=== PATIENT | female | born 1985 | race Caucasian/White ===

== ENCOUNTER 2019-07-10 13:20 | Outpatient (CLI) | payer OTHER, SELFPAY ==
--- NOTE | ~2019-07-10 | MMUS_ITS ---
EXAMINATION: MM diagnostic kanika LT w chrystal, US breast LT complete HISTORY: 2 left breast lumps at 12:00 TECHNIQUE: ML, MLO and cc 3-D tomosynthesis images of the left breast were performed and synthetic 2- D images were generated. CAD analysis was submitted and interpreted. High resolution complete left br east ultrasound was performed. COMPARISON: 12/19/2018 bilateral diagnostic digital mammogram and limited 9:00 left breast ultrasound BREAST PARENCHYMAL COMPOSITION: There are scattered areas of fibroglandular density. FINDINGS: MAMMOGRAPHIC FINDINGS: No suspicious reproducible left mammographic mass is evident. ULTRASOUND: At 12:00 near the nipple there is an oval parallel circumscribed 2.7 x 6.1 x 6.6 mm sonolucency witho ut internal vascularity or suspicious shadowing consistent with a cyst. IMPRESSION: 1. No mammographic evidence of malignancy 2. Routine annual mammographic screening is recommended. BI-RADS Category 2: Benign finding(s). Reviewed, dictated and finalized at location A. IMPRESSION: 1. No mammographic evidence of malignancy 2. Routine annual mammographic screening is recommended. BI-RADS Category 2: Benign finding(s).
== END 2019-07-10 13:21 | disposition home or self-care (01) ==
LOC: ANHIMG 13:23
PROVIDERS: PCP Nurse Practitioner Family; Visit Provider Nurse Practitioner Family
DX: N63.20 Unspecified lump in the left breast, unspecified quadrant (principal)
CPT/HCPCS: 76641; 77061; 77065; G0279

== ENCOUNTER 2019-10-22 16:49 | Outpatient (CLI) | payer OTHER, SELFPAY ==
[2019-10-22 18:28] LABS: Beta HCG Quantitative < 2.39 mIU/ML
== END 2019-10-22 16:50 | disposition home or self-care (01) ==
PROVIDERS: PCP Nurse Practitioner Family; Visit Provider Nurse Practitioner
DX: Z32.01 Encounter for pregnancy test, result positive (principal)
CPT/HCPCS: 36415; 84702

== ENCOUNTER 2020-02-11 12:56 | Outpatient (CLI) | payer OTHER, SELFPAY | END 2020-02-11 12:57 | disposition home or self-care (01) | LOC: ANHAUDASC 12:57 | PROVIDERS: PCP Nurse Practitioner Family | DX: H90.42 Sensorineural hearing loss, unilateral, left ear, with unrestricted hearing on the contralateral side (principal) | CPT/HCPCS: 92557; 92567 ==

== ENCOUNTER 2020-02-14 15:06 | Outpatient (CLI) | payer OTHER, SELFPAY ==
--- NOTE | ~2020-02-14 | MR_ITS ---
EXAMINATION: MR IAC wo/w con DATE: 02/14/2020 16:57 INDICATION: Sudden left-sided hearing loss. TECHNIQUE: Magnetic resonance imaging (MRI) of the brain, brainstem, and internal auditory canals was performed without and with 20 mL MultiHance intravenous contrast. Sequences included sagittal and ax ial T1-weighted FSE, axial diffusion-weighted FS EPI, axial T2*-weighted GRE, axial T2-weighted FLAIR Propeller, axial T2-weighted Propeller, small fjxkg-qu-inea coronal FIESTA, small jqudn-tr-tbez mayi nal T1-weighted FSE, and small cmqbo-bg-zrtx axial T1-weighted SPGR. Postcontrast sequences included axial T1-weighted FSE, small cddyi-rg-zsam coronal T1-weighted FSE, and small brzth-mp-psuk axial T1- weighted SPGR. Apparent diffusion coefficient (ADC) maps were created. COMPARISON: Brain MRI 03/08/2018 FINDINGS: There is no intracranial hemorrhage, acute infarction, or abnormal intracranial mass lesion . The ventricles are normal in size. There is mild mucosal thickening in the paranasal sinuses. The o rbits are normal. The internal auditory canals are normal. There is a small left mastoid effusion. IMPRESSION: 1. Normal brain. Reviewed, dictated and finalized at location A. IMPRESSION: 1. Normal brain.
[2020-02-14 16:19] LABS: Estimated Glomerular Filt Rate > 60
== END 2020-02-14 15:07 | disposition home or self-care (01) ==
PROVIDERS: PCP Nurse Practitioner Family
DX: H91.22 Sudden idiopathic hearing loss, left ear (principal)
CPT/HCPCS: 70553; A9577

== ENCOUNTER 2020-03-24 10:00 | Outpatient (RCR) | payer OTHER, SELFPAY | END 2020-03-24 23:59 | disposition home or self-care (01) | LOC: ANHAUDIO 10:00 | PROVIDERS: PCP Nurse Practitioner Family; Visit Provider Nurse Practitioner Family | DX: Z46.1 Encounter for fitting and adjustment of hearing aid (principal) | CPT/HCPCS: 99199; V5241; V5257; V5264 ==

== ENCOUNTER 2020-07-28 09:45 | Outpatient (CLI) | payer OTHER, SELFPAY ==
--- NOTE | ~2020-07-28 | MMUS_ITS ---
EXAMINATION: MM diagnostic kanika BI w chrystal, US breast BI complete HISTORY: Bilateral nipple discharge. Breast pain. TECHNIQUE: Additional 3-D tomosynthesis images of the breasts were performed and synthetic 2-D images were generated. CAD analysis was submitted and interpreted. High resolution bilateral complete breas t ultrasound was performed. COMPARISON: Comparison to multiple prior studies sequentially, with oldest reviewed study dated 11/2012. BREAST PARENCHYMAL COMPOSITION: Breast composed of scattered areas of fibroglandular density FINDINGS: MAMMOGRAPHIC FINDINGS: There are no suspicious masses, calcifications or architectural distortion in either breast to sugges t malignancy. ULTRASOUND: Bilateral complete breast ultrasound including all 4 quadrants: There are multiple cysts of both celeste sts, largest in the right breast measuring 8 mm in largest in the left breast measuring approximately 1 cm. No sonographic evidence for malignancy. IMPRESSION: 1. No evidence for malignancy in either breast. 2. Routine yearly screening mammogram and regular clinical breast examination are recommended. BI-RADS Category 2: Benign finding(s). Reviewed, dictated and finalized at location A. IMPRESSION: 1. No evidence for malignancy in either breast. 2. Routine yearly screening mammogram and regular clinical breast examination a re recommended. BI-RADS Category 2: Benign finding(s).
[2020-07-28 10:58] LABS: Free T4 Free Thyroxine 0.78 ng/mL (0.78-2.19)
== END 2020-07-28 09:46 | disposition home or self-care (01) ==
PROVIDERS: PCP Nurse Practitioner Family; Visit Provider Obstetrics & Gynecology Gynecology
DX: O92.6 Galactorrhea (principal)
CPT/HCPCS: 36415; 76641; 77062; 77066; 84146; 84439; 84443; G0279

== ENCOUNTER 2020-09-16 12:43 | Outpatient (CLI) | payer OTHER, SELFPAY ==
[2020-09-16 14:35] LABS: Free T4 Free Thyroxine 0.86 ng/mL (0.78-2.19)
== END 2020-09-16 12:44 | disposition home or self-care (01) ==
PROVIDERS: PCP Nurse Practitioner Family; Visit Provider Obstetrics & Gynecology Gynecology
DX: R79.9 Abnormal finding of blood chemistry, unspecified (principal)
CPT/HCPCS: 36415; 84439; 84443

== ENCOUNTER 2023-03-23 09:21 | Outpatient (CLI) | payer OTHER, SELFPAY ==
[2023-03-26 06:36] LABS: Prolactin 8.9 ng/mL (***)
== END 2023-03-23 09:22 | disposition home or self-care (01) ==
LOC: ANHLAB 09:24
PROVIDERS: PCP Nurse Practitioner Family; Visit Provider Advanced Practice Midwife
DX: N64.52 Nipple discharge (principal)
CPT/HCPCS: 36415; 84146

== ENCOUNTER 2023-06-22 09:28 | Outpatient (CLI) | payer OTHER, SELFPAY ==
[2023-06-22 09:46] LABS: Hematocrit 50.2 % (37.0-47.0); Hemoglobin 16.1 g/dL (12.0-15.0); Mean Corpuscular HGB Conc 32.1 g/dl (32-36); Mean Corpuscular Hemoglobin 29.5 pg (26-34); Mean Corpuscular Volume 92.1 fl (80-100); Mean Platelet Volume 9.9 fl (7.4-10.4); Platelet Count Result 287 k/mm3 (150-375); Red Blood Count 5.45 M/mm3 (4.2-5.4); Red Cell Distribution Width 13.3 % (11.5-14.5); White Blood Count 6.7 K/mm3 (4.5-10.0)
[2023-06-22 09:58] LABS: Alanine Aminotransferase 16 U/L (6-35); Albumin Level 4.3 g/dL (3.5-5.1); Alkaline Phosphatase 104 U/L (38-126); Anion Gap 7 mmol/L (8-16); Aspartate Amino Transferase 17 U/L (14-36); Bilirubin,Total 0.4 mg/dL (0.2-1.3); Blood Urea Nitrogen 10 mg/dL (7-17); Calcium 9.2 mg/dL (8.4-10.2); Carbon Dioxide 24 mmol/L (22-30); Chloride 106 mmol/L (98-107); Cholesterol 170 mg/dL (0-200); Estimated Glomerular Filt Rate > 60; Glucose 94 mg/dL (65-110); HDL Direct 60 mg/dL; Potassium 4.1 mmol/L (3.4-5.0); Sodium 137 mmol/L (137-145); Triglycerides 43 mg/dL (<150)
[2023-06-22 10:08] LABS: LDL Cholesterol Direct 101 mg/dL
[2023-06-22 10:49] LABS: Hemoglobin A1C 5.5 % (<5.7)
[2023-06-26 11:56] LABS: Vitamin D 1,25 (OH)2 Total 63 pg/mL (18-72); Vitamin D2 1,25 (OH)2 15 pg/mL; Vitamin D3 1,25 (OH)2 48 pg/mL
== END 2023-06-22 09:29 | disposition home or self-care (01) ==
LOC: ANHLAB 09:29
PROVIDERS: PCP Nurse Practitioner Family; Visit Provider Nurse Practitioner Family
DX: R53.83 Other fatigue (principal); Z13.0 Encounter for screening for diseases of the blood and blood-forming organs and certain disorders involving the immune mechanism; Z13.1 Encounter for screening for diabetes mellitus; E55.9 Vitamin D deficiency, unspecified; E03.9 Hypothyroidism, unspecified; Z13.220 Encounter for screening for lipoid disorders
CPT/HCPCS: 36415; 80053; 80061; 82607; 82652; 83036; 84443; 85027

== ENCOUNTER 2023-06-29 13:06 | Outpatient (CLI) | payer OTHER, SELFPAY ==
--- NOTE | ~2023-06-29 | XR_ITS ---
EXAMINATION: XR chest 2V DATE: 06/29/2023 13:17 INDICATION: Couple weeks of cough TECHNIQUE: PA and lateral views of the chest were obtained. COMPARISON: Chest radiograph dated 03/12/2018 FINDINGS: The lungs remain clear with no focal airspace opacities, pulmonary edema, pleural effusion or pneumot horax. The cardiomediastinal silhouette is normal. Mild thoracic spondylosis. IMPRESSION: 1. No acute cardiopulmonary disease. Reviewed, dictated and finalized at location B.
== END 2023-06-29 13:07 | disposition home or self-care (01) ==
LOC: ANHIMG 13:09
PROVIDERS: PCP Nurse Practitioner Family; Visit Provider Nurse Practitioner Family
DX: R05.8 Other specified cough (principal)
CPT/HCPCS: 71046

== ENCOUNTER 2023-07-21 12:52 | Outpatient (CLI) | payer OTHER, SELFPAY ==
--- NOTE | ~2023-07-21 | MMUS_ITS ---
EXAMINATION: US breast BI complete, MM diagnostic kanika BI w chrystal HISTORY: Nipple discharge. TECHNIQUE: Additional 3-D tomosynthesis images of the breasts were performed and synthetic 2-D images were generated. CAD analysis was submitted and interpreted. High resolution bilateral complete breas t ultrasound was performed. COMPARISON: 07/28/2020 BREAST PARENCHYMAL COMPOSITION: Not dense: There are scattered areas of fibroglandular density. FINDINGS: MAMMOGRAPHIC FINDINGS: There are no suspicious masses, calcifications or architectural distortion in either breast to sugges t malignancy. ULTRASOUND: Complete bilateral US of all 4 quadrants of the breasts and retroareolar region was reviewed. Right breast: Multiple cysts of the right breast, largest in the periareolar location measuring 1.6 c m. No suspicious masses to suggest malignancy. Left breast: Multiple left breast cysts. At 2:00, 2 cm from the nipple, there is an irregular hypoech oic mass with peripheral vascularity measuring 5 mm. IMPRESSION: 1. Irregular hypoechoic left breast mass at 2:00, 2 cm from the nipple measuring 5 mm. 2. Ultrasound-guided left breast biopsy recommended. BI-RADS category 4, suspicious findings. Reviewed, dictated and finalized at location A. IMPRESSION: 1. Irregular hypoechoic left breast mass at 2:00, 2 cm from the nipple measurin g 5 mm. 2. Ultrasound-guided left breast biopsy recommended. BI-RADS category 4, suspicious findings.
== END 2023-07-21 12:53 | disposition home or self-care (01) ==
PROVIDERS: PCP Nurse Practitioner Family; Visit Provider Advanced Practice Midwife
DX: N64.52 Nipple discharge (principal); R92.8 Other abnormal and inconclusive findings on diagnostic imaging of breast
CPT/HCPCS: 76641; 77062; 77066; G0279

== ENCOUNTER 2024-12-27 10:01 | Outpatient (CLI) | payer BC, SELFPAY ==
--- OUTSIDE RECORDS SUMMARY | 2018-12-19 | XMS_ITS | Encounter Summary ---
Author Organization [facility] Healthcare Address [address] [place] [address] Care Team Providers Care Group Leader Semiconductor Testing Name Role Phone Unavailable Primary Care Provider Unavailabl e Reason for Visit * Diagnostic Imaging (Routine) - Closed Specialty Diagnoses / Procedures Referred By Contac t Referred To Contact Procedures Breast Imaging US Outside Reference Transcribed Order, Provider Referral ID Status Reason Start Date Expiration Date Visits Re quested Visits Authorized [id number] Closed 08/04/2023 09/02/2024 1 1 Encounter Details Date Type Department Care Team (Late st Contact Info) Description 12/19/2018 Hospital Encounter [facility] [address] [place] [phone] Social History Tobacco Use Types Packs/Day Years Used Date Smoking Tobacco: Former Cigarettes Smokeless Tobacco: Never Personal Safety Answer Date Recorded Have you ever been in or are you currently in a harmful physical or emotional relationship or is someone making you feel afraid or unsafe? 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
--- OUTSIDE RECORDS SUMMARY | 2018-12-19 00:05 | XMS_ITS | Encounter Summary ---
Author Organization [facility] Healthcare Address [address] [place] [address] Care Team Providers Care Pulper Tender Name Role Phone Unavailable Primary Care Provider Unavailabl e Reason for Visit * Diagnostic Imaging (Routine) - Closed Specialty Diagnoses / Procedures Referred By Contac t Referred To Contact Procedures Breast Imaging Diagnostic Outside Reference Transcribed Order, Provider Referral ID Status Reason Start Date Expiration Date Visits Re quested Visits Authorized [id number] Closed 08/04/2023 09/02/2024 1 1 Encounter Details Date Type Department Care Team (Late st Contact Info) Description 12/19/2018 12:05 AM CDT Hospital Encounter [facility]) [address] [place] [address] [phone] Social History Tobacco Use Types Packs/Day Years [...] on file 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
--- OUTSIDE RECORDS SUMMARY | 2018-12-19 00:10 | XMS_ITS | Encounter Summary ---
Author Organization [facility] Healthcare Address [address] [place] [address] Care Team Providers Care Architect Intern Name Role Phone Unavailable Primary Care Provider Unavailabl e Reason for Visit * Diagnostic Imaging (Routine) - Closed Specialty Diagnoses / Procedures Referred By Cuateac t Referred To Contact Procedures Breast Imaging US Outside Reference Transcribed Order, Provider Referral ID Status Reason Start Date Expiration Date Visits Re quested Visits Authorized [id number] Closed 08/04/2023 09/02/2024 1 1 Encounter Details Date Type Department Care Team (Late st Contact Info) Description 12/19/2018 12:10 AM CDT Hospital Encounter [facility]) [address] [place] [address] [phone] Social History Tobacco Use Types Packs/Day Years [...] on file 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 There will be no report generated by a [facility] Radiologist. Narrative [facility] - 08/04/2023 12:07 PM CDT EXAMINATION: Images For Reference Purposes Only us Provider Transcribed Order IMG MAMMO PROCEDURES Final Result [facility] documented in this encounter Visit Diagnoses Not on filedocumented in this encounter
--- OUTSIDE RECORDS SUMMARY | 2018-12-19 00:15 | XMS_ITS | Encounter Summary ---
Author Organization [facility] Healthcare Address [address] [place] [address] Care Team Providers Care Dredge Mechanic Name Role Phone Unavailable Primary Care Provider Unavailabl e Reason for Visit * Diagnostic Imaging (Routine) - Closed Specialty Diagnoses / Procedures Referred By Contac t Referred To Contact Procedures Breast Imaging Diagnostic Outside Reference Transcribed Order, Provider Referral ID Status Reason Start Date Expiration Date Visits Re quested Visits Authorized [id number] Closed 08/04/2023 09/02/2024 1 1 Encounter Details Date Type Department Care Team (Late st Contact Info) Description 12/19/2018 12:15 AM CDT Hospital Encounter [facility]) [address] [place] [address] [phone] Social History Tobacco Use Types Packs/Day Years [...] on file 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 There will be no report generated by a [facility] Radiologist. Narrative [facility] - 08/04/2023 12:07 PM CDT EXAMINATION: Images For Reference Purposes Only us Provider Transcribed Order IMG MAMMO PROCEDURES Final Result [facility] documented in this encounter Visit Diagnoses Not on filedocumented in this encounter
--- OUTSIDE RECORDS SUMMARY | 2019-07-10 | XMS_ITS | Encounter Summary ---
Author Organization [facility] Healthcare Address [address] [place] [address] Care Team Providers Care Wildlife Biostation Research Ecologist Name Role Phone Unavailable Primary Care Provider Unavailabl e Reason for Visit * Diagnostic Imaging (Routine) - Closed Specialty Diagnoses / Procedures Referred By Contac t Referred To Contact Procedures Breast Imaging US Outside Reference Transcribed Order, Provider Referral ID Status Reason Start Date Expiration Date Visits Re quested Visits Authorized [id number] Closed 08/04/2023 09/02/2024 1 1 Encounter Details Date Type Department Care Team (Late st Contact Info) Description 07/10/2019 Hospital Encounter [facility]) [address] [place] [phone] Social History Tobacco Use Types Packs/Day Years [...] on file 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
--- OUTSIDE RECORDS SUMMARY | 2019-07-10 00:05 | XMS_ITS | Encounter Summary ---
Author Organization [facility] Healthcare Address [address] [place] [address] Care Team Providers Care Composition Floor Setter Name Role Phone Unavailable Primary Care Provider Unavailabl e Reason for Visit * Diagnostic Imaging (Routine) - Closed Specialty Diagnoses / Procedures Referred By Contac t Referred To Contact Procedures Breast Imaging Diagnostic Outside Reference Transcribed Order, Provider Referral ID Status Reason Start Date Expiration Date Visits Re quested Visits Authorized [id number] Closed 08/04/2023 09/02/2024 1 1 Encounter Details Date Type Department Care Team (Late st Contact Info) Description 07/10/2019 12:05 AM CDT Hospital Encounter [facility] [address] [place] [address] [phone] Social History Tobacco Use Types Packs/Day Years [...] on file 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
--- OUTSIDE RECORDS SUMMARY | 2019-07-10 00:10 | XMS_ITS | Encounter Summary ---
Author Organization [facility] Healthcare Address [address] [place] [address] Care Team Providers Care Experimental Worker Name Role Phone Unavailable Primary Care Provider Unavailabl e Reason for Visit * Diagnostic Imaging (Routine) - Closed Specialty Diagnoses / Procedures Referred By Cuateac t Referred To Contact Procedures Breast Imaging US Outside Reference Transcribed Order, Provider Referral ID Status Reason Start Date Expiration Date Visits Re quested Visits Authorized [id number] Closed 08/04/2023 09/02/2024 1 1 Encounter Details Date Type Department Care Team (Late st Contact Info) Description 07/10/2019 12:10 AM CDT Hospital Encounter 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 There will be no report generated by a [facility] Radiologist. Narrative [facility] - 08/04/2023 12:07 PM CDT EXAMINATION: Images For Reference Purposes Only us Provider Transcribed Order IMG MAMMO PROCEDURES Final Result [facility] documented in this encounter Visit Diagnoses Not on filedocumented in this encounter
--- OUTSIDE RECORDS SUMMARY | 2019-07-10 00:15 | XMS_ITS | Encounter Summary ---
Author Organization [facility] Healthcare Address [address] [place] [address] Care Team Providers Care Retail Shift Manager Name Role Phone Unavailable Primary Care Provider Unavailabl e Reason for Visit * Diagnostic Imaging (Routine) - Closed Specialty Diagnoses / Procedures Referred By Cuateac t Referred To Contact Procedures Breast Imaging Diagnostic Outside Reference Transcribed Order, Provider Referral ID Status Reason Start Date Expiration Date Visits Re quested Visits Authorized [id number] Closed 08/04/2023 09/02/2024 1 1 Encounter Details Date Type Department Care Team (Late st Contact Info) Description 07/10/2019 12:15 AM CDT Hospital Encounter [facility] [address] [place] [address] [phone] Social History Tobacco Use Types Packs/Day Years [...] on file 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 There will be no report generated by a [facility] Radiologist. Narrative [facility] - 08/04/2023 12:07 PM CDT EXAMINATION: Images For Reference Purposes Only us Provider Transcribed Order IMG MAMMO PROCEDURES Final Result [facility] documented in this encounter Visit Diagnoses Not on filedocumented in this encounter
--- OUTSIDE RECORDS SUMMARY | 2020-07-28 | XMS_ITS | Encounter Summary ---
Author Organization [facility] Healthcare Address [address] [place] [address] Care Team Providers Care Automatic Bow Maker Machine Tender Name Role Phone Unavailable Primary Care Provider Unavailabl e Reason for Visit * Diagnostic Imaging (Routine) - Closed Specialty Diagnoses / Procedures Referred By Contac t Referred To Contact Procedures Breast Imaging US Outside Reference Transcribed Order, Provider Referral ID Status Reason Start Date Expiration Date Visits Re quested Visits Authorized [id number] Closed 08/04/2023 09/02/2024 1 1 Encounter Details Date Type Department Care Team (Late st Contact Info) Description 07/28/2020 Hospital Encounter [facility] [address] [place] [phone] Social History Tobacco Use Types Packs/Day Years [...] on file 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
--- OUTSIDE RECORDS SUMMARY | 2020-07-28 00:05 | XMS_ITS | Encounter Summary ---
Author Organization [facility] Healthcare Address [address] [place] [address] Care Team Providers Care Logistics Planner Name Role Phone Unavailable Primary Care Provider Unavailabl e Reason for Visit * Diagnostic Imaging (Routine) - Closed Specialty Diagnoses / Procedures Referred By Contac t Referred To Contact Procedures Breast Imaging Diagnostic Outside Reference Transcribed Order, Provider Referral ID Status Reason Start Date Expiration Date Visits Re quested Visits Authorized [id number] Closed 08/04/2023 09/02/2024 1 1 Encounter Details Date Type Department Care Team (Late st Contact Info) Description 07/28/2020 12:05 AM CDT Hospital Encounter [facility] [address] [place] [phone] Social History Tobacco Use Types Packs/Day Years [...] on file 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
--- OUTSIDE RECORDS SUMMARY | 2020-07-28 00:10 | XMS_ITS | Encounter Summary ---
Author Organization [facility] Healthcare Address [address] [place] [address] Care Team Providers Care Wood Heel Flap Rubber Name Role Phone Unavailable Primary Care Provider Unavailabl e Reason for Visit * Diagnostic Imaging (Routine) - Closed Specialty Diagnoses / Procedures Referred By Cuateac t Referred To Contact Procedures Breast Imaging US Outside Reference Transcribed Order, Provider Referral ID Status Reason Start Date Expiration Date Visits Re quested Visits Authorized [id number] Closed 08/04/2023 09/02/2024 1 1 Encounter Details Date Type Department Care Team (Late st Contact Info) Description 07/28/2020 12:10 AM CDT Hospital Encounter [facility] [address] [place] [address] [phone] Social History Tobacco Use Types Packs/Day Years [...] on file 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 There will be no report generated by a [facility] Radiologist. Narrative [facility] - 08/04/2023 12:07 PM CDT EXAMINATION: Images For Reference Purposes Only us Provider Transcribed Order IMG MAMMO PROCEDURES Final Result [facility] documented in this encounter Visit Diagnoses Not on filedocumented in this encounter
--- OUTSIDE RECORDS SUMMARY | 2020-07-28 00:15 | XMS_ITS | Encounter Summary ---
Author Organization [facility] Healthcare Address [address] [place] [address] Care Team Providers Care Stunt Person Name Role Phone Unavailable Primary Care Provider Unavailabl e Reason for Visit * Diagnostic Imaging (Routine) - Closed Specialty Diagnoses / Procedures Referred By Cuateac t Referred To Contact Procedures Breast Imaging Diagnostic Outside Reference Transcribed Order, Provider Referral ID Status Reason Start Date Expiration Date Visits Re quested Visits Authorized [id number] Closed 08/04/2023 09/02/2024 1 1 Encounter Details Date Type Department Care Team (Late st Contact Info) Description 07/28/2020 12:15 AM CDT Hospital Encounter [facility] [address] [place] [address] [phone] Social History Tobacco Use Types Packs/Day Years [...] on file 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 There will be no report generated by a [facility] Radiologist. Narrative [facility] - 08/04/2023 12:07 PM CDT EXAMINATION: Images For Reference Purposes Only us Provider Transcribed Order IMG MAMMO PROCEDURES Final Result [facility] documented in this encounter Visit Diagnoses Not on filedocumented in this encounter
[2024-12-27 11:03] LABS: Hematocrit 45.5 % (37.0-47.0); Hemoglobin 14.5 g/dL (12.0-15.0); Mean Corpuscular HGB Conc 31.9 g/dl (32-36); Mean Corpuscular Hemoglobin 29.2 pg (26-34); Mean Corpuscular Volume 91.7 fl (80-100); Platelet Count Result 301 k/mm3 (150-375); Red Blood Count 4.96 M/mm3 (4.2-5.4); White Blood Count 9.3 K/mm3 (4.5-10.0)
--- OUTSIDE RECORDS SUMMARY | 2024-12-27 11:12 | XMS_ITS | Clinical Summary ---
Author Organization [facility] Address [address] [place] [address] Care Team Providers Care Belt Cutter Name Role Phone Amanda Wills MD Unavailable [phone] Amanda Wills MD Unavailable [phone] Lali Armijo [employer] Primary Care Provider + Allergies Active Allergy Reactions Criticality Noted Date Comments Cephalexin Other (See comments) High 04/27/2017 Latex Other (See comments) Low 08/24/2023 Penicillins Other (See comments) Low 04/27/2017 Medications levothyroxine (SYNTHROID) 25 mcg tablet Take 1 tablet (25 mcg total) by mouth daily 02/22/2023 Active topiramate (TOPAMAX) 25 mg tablet Take 1 tablet (25 mg total) by mouth daily Active Lo Loestrin Fe 1 mg-10 mcg (24)/10 mcg (2) tablet per tablet Take 1 tablet by mouth daily 05/30/2023 Active escitalopram (LEXAPRO) 10 mg tablet Take 1 tablet (10 mg total) by mouth every morning Active busPIRone (BUSPAR) 15 mg tablet Take 1 tablet (15 mg total) by mouth 3 (three) times a day as needed 11/10/2022 Active fexofenadine (ALEXA) 180 mg tablet Take 1 tablet (180 mg total) by mouth daily Active diphenhydramine HCl (BENADRYL ORAL) Take by mouth Active Active Problems Problem Noted Date Diagnosed Date Mass of left breast 08/24/2023 Encounters Date Type Department Care Team Description 11/12/2024 Telephone [facility] [address] [facility] [address] [place] [address] Britta Lara RN Abdominal Pain 11/11/2024 9:22 AM CDT - 11/11/2024 4:[address] [facility] Emergency Department [address] [place] [address] Renny Willingham MD Ahsan, Salman, MD Abdominal pain, generalized (Primary Dx); Bile duct abnormality; Gallbladder anomaly Discharge Disposition: Discharge to home or self care from Last 3 Months Surgical History Surgery Date Site/Laterality Comments TONSILLECTOMY Medical History Medical History Date Comments Depression Headache Thyroid disease Asthma Family History Medical History Relation Name Comments Lung cancer Father Colon cancer Maternal Grandmother Colon cancer Other uncle Relation Name Status Comments Father Maternal Grandmother Other uncle Social History Tobacco Use Types Packs/Day Years [...] on file Legal Sex Female 7:19 PM [employer] Gender Identity Not on file Sexual Orientation Not on file Obstetrics History Last Filed Vital Signs Vital Sign Reading Time Taken Comments Blood Pressure 138/78 11/11/2024 8:58 AM CDT Pulse 78 11/11/2024 8:58 AM CDT Temperature 36.7 C (98.1 F) 11/11/2024 8:58 AM CDT Respiratory Rate 14 11/11/2024 8:58 AM CDT Oxygen Saturation 100% 11/11/2024 8:58 AM CDT Inhaled Oxygen Concentration - - Weight 82.6 kg (182 lb) 11/11/2024 8:58 AM CDT Height 166.4 cm (5' 5.5) 11/11/2024 8:58 AM CDT Body Mass Index 29.83 11/11/2024 8:58 AM CDT Plan of Treatment Health Maintenance Due Date Last Done Comments Cervical Cancer Screening 1986 Depression Screening 1986 Hepatitis C Screening 1986 DTaP/Tdap/Td Vaccine (1 - Tdap) 1997 Varicella Vaccines (1 of 2 - 13+ 2-dose series) 1998 Hepatitis B Screening 02/16/2004 Regular Well Visit/Exam 18-64 02/16/2004 Pneumococcal vaccine <65 (1 of 2 - PCV) 2005 HPV Vaccines (1 - 3-dose SCDM series) 2013 Influenza Vaccine (#1) 2024 02/04/2017 Procedures Procedure Name Priority Date/Time Associated Diagnosis Comments CT ABDOMEN PELVIS W CONTRAST ED Urgent/IP Urgent 11/11/2024 1:02 PM CDT POCUS FEMALE TVUS, NON- 11/11/2024 11:08 AM CDT POCT HCG, URINE Routine 11/11/2024 10:03 AM CDT URINALYSIS AND REFLEX TO MICROSCOPIC AND CULTURE STAT 11/11/2024 9:56 AM CDT EGFR STAT 11/11/2024 9:44 AM CDT DIFFERENTIAL AUTO STAT 11/11/2024 9:4 4 AM CDT LIPASE STAT 11/11/2024 9:44 AM CDT SEPSIS LACTATE WITH REFLEX STAT 11/11/2024 9:44 AM CDT COMPREHENSIVE METABOLIC PANEL STAT 11/11/2024 9:44 AM CDT CBC WITH AUTO DIFFERENTIAL STAT 11/11/2024 9:44 AM CDT from Last 3 Months Results * CT Abdomen Pelvis W Contrast (11/11/2024 1:02 PM CDT) Anatomical Region Laterality Modality Body N/A Computed Tomogra phy 11/11/2024 1:20 PM CDT Impressions 11/11/2024 1:[address] evidence of cholecystitis. 2. The appendix is not well visualized . However, there is no definite CT evidence of appendicitis. 3. Nonspecific distention of the gallbladder with prominent common bile duct. Nonemergent MRCP can be considered, if there is a clinical concern for cholestatic clinical and lab findings . Dictated by: Gómez Richards M.D. The radiology attending physician has personally reviewed this study, and had reviewed and/or edited this written report and agrees with it. Electronically signed by: Jono Baltazar M.D. Narrative 11/11/2024 1:35 PM CDT EXAMINATION: Computed tomography of the abdomen with intravenous contrast HISTORY: There is concern for appendicitis versus cholecystitis. TECHNIQUE: Transaxial computed tomographic images of the abdomen were obtained with intravenous contrast according to the standard protocol after the uneventful administration of 69 mL Opti-Ray 350 intravenous contrast. COMPARISON: None FINDINGS: No acute process in the partially imaged lung bases. Heart is normal. There is no pericardial effusion. The gallbladder is mildly distended, measuring 3 cm in transverse dimension, nonspecific. No evidence of gallbladder wall thickening, gallstones or pericholecystic fluid. The common bile duct is mildly prominent, measuring 7 mm. No obstructing radiopaque choledocholithiasis. Liver normal. Fat deposition near the falciform ligament. Liver, spleen, adrenal glands, pancreas are normal. The kidneys enhance symmetrically. No suspicious cystic or solid renal lesions. There is no hydronephrosis. There is no obstructing renal stone. Bladder is decompressed. There is no bowel obstruction. The appendix is not well seen or is diminutive but there is no ancillary evidence of appendicitis (i.e. periappendiceal stranding, organized, drainable fluid collection, or hyperemia). Uterus is present. No adnexal lesions. No hydrosalpinx. Procedure Note Jono Baltazar MD - 11/11/2024 EXAMINATION: Computed tomography of the abdomen with intravenous contrast HISTORY: There is concern for appendicitis versus cholecystitis. TECHNIQUE: Transaxial computed tomographic images of the abdomen were obtained with intravenous contrast according to the standard protocol after the uneventful administration of 69 mL Opti-Ray 350 intravenous contrast. COMPARISON: None FINDINGS: No acute process in the partially imaged lung bases. Heart is normal. There is no pericardial effusion. The gallbladder is mildly distended, measuring 3 cm in transverse dimension, nonspecific. No evidence of gallbladder wall thickening, gallstones or pericholecystic fluid. The common bile duct is mildly prominent, measuring 7 mm. No obstructing radiopaque choledocholithiasis. Liver normal. Fat deposition near the falciform ligament. Liver, spleen, adrenal glands, pancreas are normal. The kidneys enhance symmetrically. No suspicious cystic or solid renal lesions. There is no hydronephrosis. There is no obstructing renal stone. Bladder is decompressed. There is no bowel obstruction. The appendix is not well seen or is diminutive but there is no ancillary evidence of appendicitis (i.e. periappendiceal stranding, organized, drainable fluid collection, or hyperemia). Uterus is present. No adnexal lesions. No hydrosalpinx. IMPRESSION: 1. No CT evidence of cholecystitis. 2. The appendix is not well visualized . However, there is no definite CT evidence of appendicitis. 3. Nonspecific distention of the gallbladder with prominent common bile duct. Nonemergent MRCP can be considered, if there is a clinical concern for cholestatic clinical and lab findings . Dictated by: Gómez Richards M.D. The radiology attending physician has personally reviewed this study, and had reviewed and/or edited this written report and agrees with it. Electronically signed by: Jono Baltazar M.D. Lefty Chase MD [facility] [place] Final Re sult * POCUS Female TVUS, NON- (11/11/2024 11:08 AM CDT) Anatomical Region Laterality Modality Other 11/11/2024 10:3 9 AM CDT Narrative 11/11/2024 11:17 AM CDT Performed by: Lefty Chase Non- TVUS: Exam Information: Exam type: Diagnostic Indication(s) for Exam: Abdominal pain Findings: Endometrium: Empty endometrial stripe Pelvic free fluid : Absent R Ovarian size: Normal R Ovarian cyst: Absent R adnexal mass: Absent L Ovarian size: Normal L Ovarian cyst: Absent L adnexal mass: Absent Interpretation: No sonographic evidence of gynecologic pathology Electronically signed by Renny Willingham on Monday, November 11, 2024 at 11:17 AM I have reviewed the images & the resident's interpretation. I agree with the findings. Images on file. Electronically signed by Lefty Chase on Monday, November 11, 2024 at 11:26 AM I have reviewed the images & the resident's interpretation. I agree with the findings. Images on file. Procedure Note Renny Willingham MD - 11/11/2024 Performed by: Lefty Chase Non- TVUS: Exam Information: Exam type: Diagnostic Indication(s) for Exam: Abdominal pain Findings: Endometrium: Empty endometrial stripe Pelvic free fluid : Absent R Ovarian size: Normal R Ovarian cyst: Absent R adnexal mass: Absent L Ovarian size: Normal L Ovarian cyst: Absent L adnexal mass: Absent Interpretation: No sonographic evidence of gynecologic pathology Electronically signed by Renny Willingham on Monday, November 11, 2024 at11:17 AM I have reviewed the images & the resident's interpretation. I agree withthe findings. Images on file. Electronically signed by Lefty Chase on Monday, November 11, 2024 at11:26 AM I have reviewed the images & the resident's interpretation. I agree withthe findings. Images on file. Renny Willingham MD POCUS ORDERABLES Edited Re sult - Final * POCT hCG, urine (11/11/2024 10:03 AM CDT) HCG, ur, POC Negative Negative Lot Number [id number] QC Backgroud Clear Acceptable QC Control Line Acceptable Urine 11/11/2024 10:0 3 AM CDT Lefty Chase MD POINT OF CARE TEST ORDERAB LES Final Result * (ABNORMAL) Urinalysis reflex to microscopic and culture Urine (11/11/2024 9:56 AM CDT) Color, ur Straw Yellow Clarity, ur Cloudy(A) Clear [facility] Specific gravity, ur 1.021 1.003 - 1.030 [facility] pH, urine 6.5 [facility] Comment: Interpretive Data U rine pH is affected by diet, medications, systemic acid-base disturbances, and renal tubular function. pH may affect urinary stone formation. For example, urine pH below 6.0 may help reduce the tendency for calcium phosphate stones and pH greater than 6.0 may reduce the tendency for uric acid stone formation. Source: [facility] Current Interpretive Data was last revised on 2017 Protein, ur ql Trace Negative [facility] Glucose, ur ql Negative Negative [facility] Ketones, ur Negative Negative [facility] Bilirubin, ur Negative Negative [facility] Blood, ur Negative Negative [facility] Urobilinogen, ur <2.0 <2.0 mg/dL [facility] Nitrite, ur Negative Negative [facility] Leukocyte esterase, ur Negative Negative [facility] UA reflex comment Reflex conditions for microscopic UA and culture not met. [facility] Urine 11/11/2024 9:56 AM CDT 11/11/2024 10:05 AM CDT Lefty Chase MD LAB MICROBIOLOGY - GENERAL ORDERABLES Final Result Performing Organization Address [facility] Co de Phone Number [facility] Department [place] [address] * Sepsis Lactate w/ Reflex (11/11/2024 9:44 AM CDT) Sepsis Lactate 1.0 0.7 - 2.0 mmol/L Blood 11/11/2024 9:44 AM CDT 11/11/2024 9:56 AM CDT Lefty Chase MD LAB BLOOD ORDERABLES Final Result Performing Organization Address City/[facility] Co de Phone Number [facility] Department [place] [address] * eGFR (11/11/2024 9:44 AM CDT) Pathologist [facility] eGFR >90 >=60 mL/min/1. 73 m2 Comment: Interpretive Data Reference Interval Normal >/= 90 mL/min/1.73m2 Mildly decreased* 60 - 89 mL/min/1.73m2 Mildly to moderately decreased 45 - 59 mL/min/1.73m2 Moderately to severely decreased 30 - 44 mL/min/1.73m2 Severely decreased 15 - 29 mL/min/1.73m2 Kidney Failure < 15 mL/min/1.73m2 *Relative to young adult level Estimated glomerular filtration rate is determined by the 2020 CKD-EPI equation recommended by the National Kidney Foundation (A Unifying Approach to GFR Estimation: Recommendations of the NKF-ASK Task Force on Reassessing the Inclusion of Race in Diagnosing Kidney Disease, JASN 2020). The CKD-EPI equation should not be used for patients with unstable renal function and has not been validated in children and those over 70. Current interpretive data was last reviewed 2021. Blood 11/11/2024 9:44 AM CDT 11/11/2024 9:55 AM CDT us Lefty Chase MD LAB BLOOD ORDERABLES Final Result [facility] [place] [address] * Differential, auto (11/11/2024 9:44 AM CDT) Pathologist [facility] Neutrophil abs 3.82 1.50 - 6.50 K/cumm Imm gran abs 0.02 0.00 - 0.10 K/cumm [facility] Lymphocyte abs 1.84 0.80 - 3.30 K/cumm [facility] Monocyte abs 0.50 0.20 - 0.80 K/cumm [facility] Eosinophil abs 0.20 0.00 - 0.50 K/cumm [facility] Basophil abs 0.09 0.00 - 0.10 K/cumm [facility] Neutrophil pct 59.1 % [facility] Comment: Interpretive Data Percent cell count reference ranges are not reported, since discordance with absolute values may lead to misinterpretation of CBC data. Current Interpretive Data was last revised on 2017. Imm gran pct 0.3 % [facility] Comment: Interpretive Data Percent cell count reference ranges are not reported, since discordance with absolute values may lead to misinterpretation of CBC data. Current Interpretive Data was last revised on 2017. Lymphocyte pct 28.4 % [facility] Comment: Interpretive Data Percent cell count reference ranges are not reported, since discordance with absolute values may lead to misinterpretation of CBC data. Current Interpretive Data was last revised on 2017. Monocyte pct 7.7 % [facility] Comment: Interpretive Data Percent cell count reference ranges are not reported, since discordance with absolute values may lead to misinterpretation of CBC data. Current Interpretive Data was last revised on 2017. Eosinophil pct 3.1 % [facility] Comment: Interpretive Data Percent cell count reference ranges are not reported, since discordance with absolute values may lead to misinterpretation of CBC data. Current Interpretive Data was last revised on 2017. Basophil pct 1.4 % [facility] Comment: Interpretive Data Percent cell count reference ranges are not reported, since discordance with absolute values may lead to misinterpretation of CBC data. Current Interpretive Data was last revised on 2017. Blood 11/11/2024 9:44 AM CDT 11/11/2024 9:56 AM CDT us Lefty Chase MD LAB BLOOD ORDERABLES Final Result [facility] Department [place] [address] * CBC with auto differential (11/11/2024 9:44 AM CDT) WBC 6.47 3.80 - 9.90 K/cumm Hgb 14.4 11.9 - 15.5 g/dL [facility] Hct 41.3 35.6 - 45.5 % [facility] Plt 258 150 - 400 K/cumm [facility] MPV 10.7 9.1 - 12.3 fL [facility] RBC 4.84 3.90 - 5.20 M/cumm [facility] MCV 85.3 81.3 - 96.4 fL [facility] MCH 29.8 27.1 - 33.3 pg [facility] MCHC 34.9 32.3 - 35.7 g/dL [facility] RDW CV 12.9 11.1 - 14.9 % [facility] RDW SD 40.1 35.7 - 48.1 fL [facility] NRBC abs 0.00 0.00 - 0.01 K/cumm [facility] Blood 11/11/2024 9:44 AM CDT 11/11/2024 9:56 AM CDT Lefty Chase MD LAB BLOOD ORDERABLES Final Result Performing Organization Address [facility]/ZIP Co de Phone Number [facility] Department [place] [address] * Lipase (11/11/2024 9:44 AM CDT) [facility] Lipase 32 10 - 99 Units/L Blood 11/11/2024 9:44 AM CDT 11/11/2024 9:55 AM CDT Lefty Chase MD LAB BLOOD ORDERABLES Final Result Performing Organization Address [facility] Co de Phone Number [facility] Department [place] [address] * (ABNORMAL) Comprehensive metabolic panel (11/11/2024 9:44 AM CDT) [facility] Sodium 144 135 - 145 mmol/L Potassium, pl 3.9 3.3 - 4.9 mmol/L [facility] Chloride 113(H) 97 - 110 mmol/L [facility] CO2 22 22 - 32 mmol/L [facility] Anion gap 9 2 - 15 mmol/L [facility] BUN 17 6 - 25 mg/dL [facility] Creatinine 0.81 0.60 - 1.10 mg/dL [facility] Glucose 93 70 - 199 mg/dL [facility] Comment: Interpretive Data Fasting glucose >/= 126 mg/dl is diagnostic for diabetes. Fasting is defined as no caloric intake for at least 8 hours. Fasting glucose between 100 mg/dl to 125 mg/dl is diagnostic of prediabetes. In a patient with classic symptoms of hyperglycemia or hyperglycemic crisis, a random glucose >/= 200 mg/dl is diagnostic for diabetes. In the absence of unequivocal hyperglycemia, results should be confirmed by repeat testing. The classification and Diagnosis of Diabetes Diabetes Care 2021; 46: S19-S40. Current interpretive data was last revised 2022. Calcium 8.6 8.5 - 10.3 mg/dL [facility] Bilirubin, total 0.3 0.1 - 1.2 mg/dL [facility] Protein, pl 6.9 6.5 - 8.5 g/dL [facility] Albumin 4.1 3.5 - 5.0 g/dL [facility] Alk phos 84 40 - 130 Units/L [facility] ALT 15 7 - 45 Units/L [facility] AST 17 10 - 45 Units/L [facility] Blood 11/11/2024 9:44 AM CDT 11/11/2024 9:55 AM CDT Lefty Chase MD LAB BLOOD ORDERABLES Final Result Performing Organization Address City/State/[facility] Co de Phone Number [facility] [place] [address] from Last 3 Months Insurance [employer] Care Teams Belt Cutter Relationship Specialty Start Date End Date Lali Armijo NP [address] [place] [address] PCP - General Nurse Practitioner 08/18/23 Amanda Wills MD [address] [place] [address] Referring Physician Gynecology 07/22/23 Amanda Wills MD [address] [place] [address] Referring Physician Gynecology 07/22/23
--- OUTSIDE RECORDS SUMMARY | 2024-12-27 11:12 | XMS_ITS | Clinical Summary ---
Author Organization [facility] Address [address] [place] [address] Care Team Providers Care Microbiology Coordinator Name Role Phone Unavailable Primary Care Provider Unavailabl e Social History Tobacco Use Types Packs/Day Years Used Date Smoking Tobacco: Never Assessed Comments Unknown Sex and Gender Information Value Date Recorded Sex Assigned at Not on file Legal Sex Female 7:27 PM CDT Gender Identity Not on file Sexual Orientation Not on file Plan of Treatment Health Maintenance Due Date Last Done Comments Cervical Cancer Screening Pa p Smear (Age 30 to 64) Every 3 Years 1986 Annual Physical 1989 Hepatitis C 02/16/2004 DTaP, Tdap and Td Vaccines ( 1 - Tdap) 2005 Hepatitis B Vaccines (1 of 3 - 19+ 3-dose series) 2005 HPV Vaccines (1 - 3-dose SCD M series) 2013 Cervical Cancer Screening Pa p with HPV Testing (Age 30 to 64) Every 5 Years 02/16/2016 Cervical Cancer Screening with HPV 02/16/2016 COVID-19 Vaccine (2023-2 5 season) 2024 Meningococcal B Vaccine Aged Out No l onger eligible based on patient's age to complete this topic Meningococcal Vaccine Aged Out No severino fabiola eligible based on patient's age to complete this topic Pneumococcal Vaccine: Pediat rics (0 to 5 Years) and At-Risk Patients (6 to 49 Years) Aged Out No longer eligible b ased on patient's age to complete this topic RSV Immunizations Under 20 Months Aged Out No longer eligible based on patient's age to complete this topic
[2024-12-27 11:15] LABS: Alanine Aminotransferase 12 U/L (6-35); Albumin Level 4.1 g/dL (3.5-5.1); Alkaline Phosphatase 87 U/L (38-126); Anion Gap 7 mmol/L (4-12); Aspartate Amino Transferase 21 U/L (14-36); Bilirubin,Total 0.2 mg/dL (0.2-1.3); Blood Urea Nitrogen 11 mg/dL (7-17); Calcium 9.0 mg/dL (8.4-10.2); Carbon Dioxide 26 mmol/L (22-30); Chloride 106 mmol/L (98-107); Estimated Glomerular Filt Rate > 60; Glucose 81 mg/dL (65-110); Lipase 67 U/L (23-300); Potassium 3.8 mmol/L (3.4-5.0); Sodium 139 mmol/L (137-145); Total Protein 6.8 g/dL (6.3-8.2)
== END 2024-12-27 10:02 | disposition home or self-care (01) ==
LOC: ANHLAB 10:02
PROVIDERS: PCP Nurse Practitioner Family; Visit Provider Nurse Practitioner Family
DX: R93.2 Abnormal findings on diagnostic imaging of liver and biliary tract (principal)
CPT/HCPCS: 36415; 80053; 83690; 85027